=== PATIENT | female | born 1975 | race Caucasian/White ===

== ENCOUNTER 2016-11-30 15:08 | Inpatient (IN) | payer OTHER ==
[~2016-11-30] VITALS: Ht 161.3 cm; Wt 89.3 kg
[~2016-11-30 15:08] MED LIST: FIBER SELECT GUMMIES PO; FLAGYL500 MG PO; LEVAQUIN500 MG PO; LEVOFLOXACIN750 MG PO; METRONIDAZOLE500 MG PO; OXYCODONE/ACETA1 TA1 PO; PEPCID20 MG PO; PERCOCET1 TA1 PO; VITAMIN B-121000 MCG PO; XANAX0.25 MG PO; [UNRECOGNIZED DRUG - OTHER] PO
[2016-12-04] VITALS (9 sets, daily range): BP systolic 106–128; BP diastolic 66–89
--- NOTE | 2016-12-04 11:54 | OPERATIVE REPORT ---
DATE OF SURGERY: 12/04/2016 SURGEON: Javier Riggins MD PREOPERATIVE DIAGNOSIS: 1. Status post colostomy POSTOPERATIVE DIAGNOSIS: 1. Status post colostomy PROCEDURE PERFORMED: 1. Laparoscopic colostomy takedown SURGICAL TECHNIQUE: The patient was taken to the operating room where a general anesthetic was administered and the patient prepped and draped in the usual sterile fashion in low lithotomy position. A Barreto catheter was placed during the time of surgery, but removed before the patient awoke. The patient received IV antibiotics, a local anesthetic of 0.5% Marcaine with epinephrine, sequential compression devices and orogastric tube. A right subcostal puncture was first made and a Veress needle used to insufflate. A 5 mm cannula was passed and a 5 mm telescope used to visualize the abdominal cavity for placement of other trocars and avoidance of adhesions. An additional 10 mm was placed in the right lower quadrant and adhesions were taken down at the midline. This exposed some weakness of the fascia here, but no prolapsing hernia. The colostomy site was also clearly identified. Another 5 mm was placed in the right side of the abdomen. Adhesions were fully taken down. The pelvis was explored, and some of the small bowel was freed up to allow access to the anterior part of the rectosigmoid junction, where the anastomosis was to be made. The colostomy site was excised. It was closed prior to the start of the operation. A transverse elliptical incision was used to free up the colostomy down to the fascial level and deliver the descending colon upward, onto the abdominal wall. A pursestring device and 4-0 Maxon suture was used to place a pursestring and the excess colon cut away. Sizers were used, and a 28 mm anastomosis was selected. The anvil was tied into the descending colon and returned to the abdominal cavity. The fascia was closed with running 0 PDS suture and the abdomen re-insufflated. Sizers were passed from the rectum to the end of the stump. The anastomosis was carried out using an EEA device. Two complete donuts of tissue were recovered. The anastomosis was insufflated under irrigation fluid and was found to be free of leaks. Free fluid was suctioned away, and the gas was evacuated. The colostomy site was closed with running subcuticular 4-0 Vicryl suture. The 10 mm port sites were closed with interrupted subcuticular 4-0 Vicryl suture. Steri-Strips and dressings were placed at all sites, and the patient left in good condition. No intraoperative complications were encountered.
[2016-12-05 02:01] VITALS: BP 102/68
[2016-12-05 06:48] VITALS: BP 113/75
[2016-12-05 10:52] VITALS: BP 116/73
--- NOTE | 2016-12-05 11:18 | Progress Note ---
Subjective General feels fine no complaints. No stool or gas yet. Physical Exam Vital Signs / I&Os Vital Signs Date Time Temp Pulse Resp B/P Pulse O2 O2 Flow FiO2 Ox Delivery Rate 12/05 1052 98.4 88 18 116/73 99 Room Air 12/05 0648 98.2 87 18 113/75 97 Room Air 12/05 0201 98.2 85 20 102/68 96 Room Air 12/05 0017 Room Air 12/04 2240 98.2 85 20 106/68 97 Room Air 12/04 1830 98.1 96 18 122/66 95 Room Air 12/04 1447 97.5 82 17 123/81 95 Room Air 12/04 1231 97.3 81 18 123/82 100 Nasal 2.0 Cannula 12/04 1145 97.5 76 18 125/85 98 Nasal 2.0 Cannula I&O 12/04 0800 12/04 1600 12/05 0000 Intake Total 1000 150 Output Total 100 2283 Balance 1000 50 -2283 General Appearance Alert, Oriented X3, Cooperative, No acute distress Abdomen Normal exam, Normal bowel sounds, Soft Assessment and Plan Problem List 1. S/P colostomy takedown Plan await stool and gas to advance diet-probably by tommorow, then home.
[2016-12-05 14:55] VITALS: BP 125/79
[2016-12-05 18:46] VITALS: BP 117/67
[2016-12-05 22:50] VITALS: BP 105/66
[2016-12-06 02:02] VITALS: BP 112/70
[2016-12-06 06:35] VITALS: BP 107/69
--- NOTE | 2016-12-06 07:33 | Progress Note ---
Subjective General Pt. reports she passed gas and tolerated liquids Physical Exam Vital Signs / I&Os Vital Signs Date Time Temp Pulse Resp B/P Pulse O2 O2 Flow FiO2 Ox Delivery Rate 12/06 0635 98.1 80 18 107/69 99 Room Air 12/06 0202 97.9 65 15 112/70 97 Room Air 12/05 2250 98.1 92 16 105/66 96 Room Air 12/05 1940 Room Air 12/05 1846 98.2 88 18 117/67 98 Room Air 12/05 1455 98.4 88 18 125/79 100 Room Air 12/05 1052 98.4 88 18 116/73 99 Room Air I&O 12/05 0800 12/05 1600 12/06 0000 Intake Total 1347 1445 Output Total 1600 1600 Balance -253 -1600 1445 General Appearance Alert, Oriented X3, Cooperative, No acute distress Abdomen Normal exam, Normal bowel sounds, dressings intact, no erythema Assessment and Plan Problem List 1. S/P colostomy takedown Plan advance diet, home today if tolerates
[2016-12-06] MEDS ORDERED: PERCOCET1 TA1 PO (07:34)
--- NOTE | 2016-12-06 07:35 | Provider's Discharge Care Plan ---
Problem, Goal, Plan Problem List 1. S/P colostomy takedown
--- NOTE | 2016-12-06 07:35 | Provider's Discharge Care Plan ---
Problem, Goal, Plan Problem List 1. S/P colostomy takedown
== END 2016-12-06 10:15 | disposition home or self-care (01) | DRG 221 ==
LOC: SCU SRH 12-04 06:28 → U SRH 12-04 07:30 → ACUTE2 SRH 12-04 10:54
PROVIDERS: ADMIT Surgery
PROC: 0DN84ZZ Release Small Intestine, Percutaneous Endoscopic Approach (ICD-10-PCS; principal; 2016-12-04 07:30)
PROC: 0DBM0ZZ Excision of Descending Colon, Open Approach (ICD-10-PCS; principal; 2016-12-04 07:30)
DX: Z43.3 Encounter for attention to colostomy (principal); K66.0 Peritoneal adhesions (postprocedural) (postinfection); K21.9 Gastro-esophageal reflux disease without esophagitis; F43.10 Post-traumatic stress disorder, unspecified
CPT/HCPCS: 50002; 60001; 70002; 80102; 80212; 82319; 82669; 82723; 82794; 82897; 83475; 83587; 83919; 83982; 84038; 84041; 84344; 84532; 90001; 90047; 90155; 91004; 93070; 95059